=== PATIENT | male | born 1955 ===

== ENCOUNTER 2022-09-16 08:00 | Outpatient (AMB) | payer OTHER, SELFPAY ==
--- NOTE | 2022-09-16 08:06 | A.OFFVIS_ITS ---
Intake Vital Signs 09/16/22 08:10 Height 5 ft 8 in Weight 152 lb BMI 23.1 BP 132/64 Blood Pressure Location Rt brachial Position Sitting Pulse 52 Pulse Oximetry (%) 94 Intake Visit Reasons: ENP-Dementia Intake Note: Patient presents for new patient evaluation Allergies No Known Allergies [No Known Allergies*] Allergy (Unverified 09/16/22 08:11) Medication List - Last Reconciled 09/16/22 by Laurita Aparicio MD aspirin (Adult Aspirin Regimen) 81 mg PO DAILY atorvastatin 20 mg PO DAILY brimonidine 0.1% (Alphagan P) 1 drp ophthalmic (eye) Q8H cholecalciferol (vitamin D3) 25 mcg PO DAILY clonidine HCl 0.2 mg PO DAILY dorzolamide-timolol 22.3-6.8 mg/mL 1 drp ophthalmic-Right TID fluticasone propion-salmeterol 100-50 mcg/dose (Wixela Inhub) 1 inh inhalation BID gabapentin 100 mg PO BID insulin glargine (Lantus U-100 Insulin) 10 units subcut QPM losartan 100 mg PO DAILY netarsudil-latanoprost 0.02-0.005 % (Rocklatan) 1 drp ophthalmic (eye) DAILY nifedipine ER 90 mg PO DAILY sevelamer carbonate 0 mg PO HPI HPI Comments History of Present Illness Details 67y/o male comes for evaluation of change in behavior and cognitive issues. 2 weeks ago during dialysis he threatened to pull his IV out and was very agitated .He threw himself on the floor, was yelling, was not making sense, was aggressive with nurses. He was sent to [facility] - was sedated and discharged . They suggested placement in custodial care but his daughter declined. About 2 years ago his family noticed short term memory issues. he seemed confused with dates , place etc.The cognitive issues gradually progressed. He also did not like socializing. In the past 3 months his cognitive issues and behavior issues worsened significantly.Patient is aggressive, belligerent, refuses treatment. He lives with his . He paces at night and is more confused.No hallucinations. ABout 5 years ago he socially isolated himself, then he left to [place] without informing his family. He spend about a year in [place]. He had 1 bad fall and was looking for illegal drugs, heavy drinking etc. He came back in 2018 without informing his family prior. he called his daughter from the airport- when she met him he was in poor health. He was taken to [facility] . He had trouble with illegal drugs, pain medications, cocaine etc. [facility] Medical History (Updated 09/16/22 @ 09:10 by Laurita Aparicio MD) Anemia Anxiety Behavioral and psychological symptoms of dementia Dementia Depression Diabetes ESRD (end stage renal disease) Glaucoma Hyperlipidemia Surgical History (Updated 09/16/22 @ 08:17 by SASKIA Thomason) Hx of heart artery stent Family History (Updated 09/16/22 @ 08:18 by SASKIA Thomason) Father HTN (hypertension) Mother Diabetes Memory change Sister Diabetes Kidney disease Social History (Updated 09/16/22 @ 08:19 by SASKIA Thomason) Alcohol intake: never Patient Tobacco Use Status: Never used Tobacco Review of Systems Neuro Reports confusion Psych Reports confusion Physical Exam Vital Signs: Last Vital Signs Pulse 52 09/16/22 08:10 BP 132/64 09/16/22 08:10 Pulse Ox 94 09/16/22 08:10 BMI result Body Mass Index 23.1 Const General: no acute distress, confusion and tired appearing Nutritional Appearance: average body habitus Orientation/consciousness: oriented to person and confusion Limitations: physical limitations Neuro Other: patient was no cooperative during exam which limited the MMSE He had left leg weakness likely musculoskeletal right eye- loss of vision, redness Gait with walker - slow General: oriented to person, tone normal and confusion Cranial nerves: Yes Nystagmus not present, Yes Normal facial strength present and Yes Midline tongue present Cognition (Neuro): abnormal cognition Motor exam (neuro): Normal motor muscle tone present throughout Deep tendon reflexes (DTR's): Right triceps reflex intensity grade: 1+, Left triceps reflex intensity grade: 1+, Rt Biceps (C5, C6): 1+, Left biceps reflex intensity grade: 1+, Right brachioradialis reflex intensity grade: 1+, Left brachioradialis reflex intensity grade: 1+, Right patellar reflex intensity grade: 1+ and Left patellar reflex intensity grade: 1+ Psych Appearance: disheveled Speech and movement: Clear speech present Affect: Labile affect present Attitude: Refuses to answer (attititude/behavior) Thought content: Normal thought content present Orientation What is the (year) (season) (date) (day) (month)?: year and season Registration Name of 3 unrelated objects clearly and slowly, then ask patient to repeat all 3 of them. (1st repeat determines score. Make sure they can repeat all three): object 1, object 2 and object 3 Recall Ask patient to repeat the 3 items from question #3.: object 1, object 2 and object 3 Language Show patient a wristwatch & ask what it is. Repeat for pencil.: watch and pencil Ask the patient to 'take a piece of paper with their right hand' 'fold paper in half' 'place paper on floor': take paper in right hand, fold paper in half and place paper on floor Score Score: 13 Assessment & Plan Assessment & Plan (1) Dementia: Comment: multifactorial- vascular . substance use history, ? ETOH , ? mood disorder Code(s): F03.90 - Unspecified dementia, unspecified severity, without behavioral disturbance, psychotic disturbance, mood disturbance, and anxiety (2) Behavioral and psychological symptoms of dementia: Code(s): F03.918 - Unspecified dementia, unspecified severity, with other behavioral disturbance Plan Reports from [facility] for review. I will trial him on namenda XR 7 mg qd and quetiapine 25 mg qhs Urgent psychiatry referral for behavior management Orders: Referrals Psychiatry Referral F03.918 - Unspecified dementia, unspecified severity, with other behavioral disturbance, R41.0 - Disorientation, unspecified Medications: New memantine 7 mg PO DAILY 30 ea 3RF quetiapine 25 mg PO BEDTIME 30 tabs 3RF Coding Level of Care Code New Pt Level 4 (82162) Diagnoses Dementia F03.90 Behavioral and psychological symptoms of dementia F03.918
[2022-09-16 08:10] VITALS: BP 132/64; PULSE 52; O2SAT 94; BMI 23.1
== END 2022-09-16 09:00 | disposition home or self-care (01) ==
LOC: HO.HSMS 08:00
PROVIDERS: PCP Internal Medicine; Visit Provider Psychiatry & Neurology Neurology
DX: F03.90 Unspecified dementia, unspecified severity, without behavioral disturbance, psychotic disturbance, mood disturbance, and anxiety (principal); F03.918 Unspecified dementia, unspecified severity, with other behavioral disturbance
CPT/HCPCS: 99204

== ENCOUNTER → 2022-09-16 08:00 | Outpatient (BNVA) | payer OTHER, SELFPAY | PROVIDERS: PCP Internal Medicine; Visit Provider Psychiatry & Neurology Neurology | DX: F03.918 Unspecified dementia, unspecified severity, with other behavioral disturbance (principal) | CPT/HCPCS: 99202 ==

== ENCOUNTER 2022-10-28 08:21 | Outpatient (AMB) | payer OTHER, SELFPAY ==
--- NOTE | 2022-10-28 08:27 | A.OFFVIS_ITS ---
Intake Vital Signs 10/28/22 08:31 Height 5 ft 8 in Weight 156 lb 8 oz BMI 23.8 BP 140/78 H Blood Pressure Location Lt brachial Position Sitting Respiration 16 Pulse 83 Pulse Source Pulse Oximeter Pulse Oximetry (%) 94 Oxygen Delivery Method Room Air Intake Visit Reasons: 6wk f/u Dementia-confirmed Intake Note: pt states he feels good today Allergies No Known Allergies [No Known Allergies*] Allergy (Verified 10/28/22 08:30) HPI HPI Comments History of Present Illness Details 67y/o male comes for evaluation of change in behavior and cognitive issues.He was started on quetiapine 25 mg qhs - did not help with his behavior but no side effects Memantine did not help either.His confusion is worse during dialysis and is worse on days he is getting dialysis . 2 weeks ago during dialysis he threatened to pull his IV out and was very agitated .He threw himself on the floor, was yelling, was not making sense, was aggressive with nurses. He was sent to [facility] - was sedated and discharged . They suggested placement in nursing home care but his daughter declined. About 2 years ago his family noticed short term memory issues. he seemed con fused with dates , place etc.The cognitive issues gradually progressed. He also did not like socializing. In the past 3 months his cognitive issues and behavior issues worsened significantly.Patient is aggressive, belligerent, refuses treatment. He lives with his . He paces at night and is more confused.No hallucinations. ABout 5 years ago he socially isolated himself, then he left to [place] without informing his family. He spend about a year in [place]. He had 1 bad fall and was looking for illegal drugs, heavy drinking etc. He came back in 2018 without informing his family prior. he called his daughter from the airport- when she met him he was in poor health. He was taken to [facility] . He had trouble with illegal drugs, pain medications, cocaine etc. [facility] Medical History (Updated 10/28/22 @ 08:52 by Laurita Aparicio MD) Anemia Anxiety Behavioral and psychological symptoms of dementia Delirium due to another medical condition Dementia Depression Diabetes ESRD (end stage renal disease) Glaucoma Hyperlipidemia Surgical History (Updated 09/16/22 @ 08:17 by SASKIA Thomason) Hx of heart artery stent Family History (Updated 09/16/22 @ 08:18 by SASKIA Thomason) Father HTN (hypertension) Mother Diabetes Memory change Sister Diabetes Kidney disease Social History (Updated 09/16/22 @ 08:19 by SASKIA Thomason) Alcohol intake: never Patient Tobacco Use Status: Never used Tobacco Review of Systems Neuro Reports confusion Psych Reports confusion Physical Exam Vital Signs: Last Vital Signs Pulse 83 10/28/22 08:31 Resp 16 10/28/22 08:31 BP 140/78 H 10/28/22 08:31 Pulse Ox 94 10/28/22 08:31 Oxygen Delivery Method Room Air 10/28/22 08:31 BMI result Body Mass Index 23.8 Const General: no acute distress, confusion and tired appearing Nutritional Appearance: average body habitus Orientation/consciousness: oriented to person and confusion Limitations: physical limitations Neuro Other: patient was no cooperative during exam which limited the MMSE He had left leg weakness likely musculoskeletal right eye- loss of vision, redness Gait with walker - slow General: oriented to person, tone normal and confusion Cranial nerves: Yes Nystagmus not present, Yes Normal facial strength present and Yes Midline tongue present Cognition (Neuro): abnormal cognition Motor exam (neuro): Normal motor muscle tone present throughout Psych Appearance: disheveled Speech and movement: Clear speech present Affect: Labile affect present Attitude: Refuses to answer (attititude/behavior) Thought content: Normal thought content present Assessment & Plan Assessment & Plan (1) Dementia: Comment: multifactorial- vascular . substance use history, ? ETOH , ? mood disorder Code(s): F03.90 - Unspecified dementia, unspecified severity, without behavioral disturbance, psychotic disturbance, mood disturbance, and anxiety (2) Behavioral and psychological symptoms of dementia: Code(s): F03.918 - Unspecified dementia, unspecified severity, with other behavioral disturbance (3) Delirium due to another medical condition: Comment: dialysis induced Code(s): F05 - Delirium due to known physiological condition Plan Increase namenda XR 14 mg qd and stop quetiapine 25 mg qhs I will trial him on haldol 0.25 mg tid and also PRN lorazepam Urgent psychiatry referral for behavior management Medications: New lorazepam 0.5 mg PO TID PRN 90 tabs 0RF anxiety haloperidol 0.25 mg (1/2 x 0.5 mg) PO BID 45 tabs 1RF Discontinued quetiapine Discontinued Reason: Doctor's Order 25 mg PO BEDTIME 30 tabs 3RF Coding Level of Care Code Est Pt Level 4 (70293) Diagnoses Dementia F03.90 Behavioral and psychological symptoms of dementia F03.918 Delirium due to another medical condition F05
[2022-10-28 08:31] VITALS: BP 140/78; PULSE 83; RESP 16; O2SAT 94; BMI 23.8
== END 2022-10-28 09:00 | disposition home or self-care (01) ==
PROVIDERS: PCP Internal Medicine; Visit Provider Psychiatry & Neurology Neurology
DX: F03.90 Unspecified dementia, unspecified severity, without behavioral disturbance, psychotic disturbance, mood disturbance, and anxiety (principal); F03.918 Unspecified dementia, unspecified severity, with other behavioral disturbance; F05 Delirium due to known physiological condition
CPT/HCPCS: 99214

== ENCOUNTER → 2022-10-28 08:21 | Outpatient (BNVA) | payer OTHER, SELFPAY | PROVIDERS: PCP Internal Medicine; Visit Provider Psychiatry & Neurology Neurology | DX: F03.918 Unspecified dementia, unspecified severity, with other behavioral disturbance (principal); F05 Delirium due to known physiological condition | CPT/HCPCS: 99212 ==

== ENCOUNTER 2023-09-30 07:33 | Outpatient (AMB) | payer OTHER, SELFPAY ==
--- NOTE | 2023-09-30 07:33 | A.OFFVIS_ITS ---
Vital Signs 09/30/23 07:34 Height 5 ft 8 in BP 98/54 L Blood Pressure Location Rt brachial Position Sitting Respiration 16 Pulse 61 Pulse Source Pulse Oximeter Pulse Oximetry (%) 97 Oxygen Delivery Method Room Air Intake Visit Reasons: Follow Up - Confirmed Intake Note: Pt presents to the office for a one year follow up for dementia. [place] [employer] Loom Required: No Allergies ampicillin Allergy (Intermediate, Verified 09/30/23 07:41) vomiting nicardipine Allergy (Mild, Verified 09/30/23 07:41) Altered Sense of Taste Medication List - Last Reconciled 09/30/23 by Laurita Aparicio MD amlodipine 10 mg PO DAILY aspirin (Adult Aspirin Regimen) 81 mg PO DAILY atorvastatin 20 mg PO DAILY atropine 0.1 mg PO Q6H brimonidine 0.1% (Alphagan P) 1 drp ophthalmic (eye) Q8H cholecalciferol (vitamin D3) 25 mcg PO DAILY clonidine HCl 0.2 mg PO DAILY dorzolamide-timolol 22.3-6.8 mg/mL 1 drp ophthalmic-Right TID fluticasone propion-salmeterol 100-50 mcg/dose (Wixela Inhub) 1 inh inhalation BID gabapentin 100 mg PO BID haloperidol 1 mg PO ONCE PRN 30 days hydralazine 100 mg PO BID insulin glargine (Lantus U-100 Insulin) 10 units subcut QPM losartan 100 mg PO DAILY netarsudil-latanoprost 0.02-0.005 % (Rocklatan) 1 drp ophthalmic (eye) DAILY sevelamer carbonate 0 mg PO trazodone 25 mg PO DAILY HPI Comments Details: 68y/o male comes for follow up of behavior and cognitive issues during dialysis.His last viist was 1 year ago when he was rec to see a psychiatrist. In Dec 2022 he had hip replacement and was hospitalized for possible seizure. After his discharge he was walking normally .4 week later he had a CVA - he was hospitalized at [facility] for possible meningitis . He had leg ? infections , vascular issues - had maria de jesus above knee amputations. He lives at home and his daughter is his INTERNAL [employer]IC[employer] VETERIN[employer] TECHNICIAN she is here for help with sundowning and agitation during dialysis. His underwriting assistant suggested haloperidol 1mg prior to dialysis. he also started him on trazadone 25 mg qhs for sleep. His confusion is worse during dialysis and is worse on days he is getting dialysis . Prior history-2 weeks ago during dialysis he threatened to pull his IV out and was very agitated .He threw himself on the floor, was yelling, was not making sense, was aggressive with nurses. He was sent to [facility] - was sedated and discharged . They suggested placement in exterminator care but his daughter declined. About 2 years ago his family noticed short term memory issues. he seemed confused with dates , place etc.The cognitive issues gradually progressed. He also did not like socializing. In the past 3 months his cognitive issues and beh avior issues worsened significantly.Patient is aggressive, belligerent, refuses treatment. He lives with his . He paces at night and is more confused.No hallucinations. ABout 5 years ago he socially isolated himself, then he left to [place] without informing his family. He spend about a year in [place]. He had 1 bad fall and was looking for illegal drugs, heavy drinking etc. He came back in 2018 without informing his family prior. he called his daughter from the airport- when she met him he was in poor health. He was taken to [facility] . He had trouble with illegal drugs, pain medications, cocaine etc. 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 Delirium due to another medical condition Dementia Behavioral and psychological symptoms of dementia Anxiety Depression Hyperlipidemia Glaucoma Anemia ESRD (end stage renal disease) Diabetes Surgical History H/O lower limb amputation Hx of heart artery stent Family History Father HTN (hypertension) Mother Diabetes Memory change Sister Diabetes Kidney disease Social History Alcohol intake: never Patient Tobacco Use Status: Never used Tobacco Review of Systems Neuro Reports confusion Psych Reports confusion Physical Exam Vital Signs: Last Vital Signs Pulse 61 09/30/23 07:34 Resp 16 09/30/23 07:34 BP 98/54 L 09/30/23 07:34 Pulse Ox 97 09/30/23 07:34 Oxygen Delivery Method Room Air 09/30/23 07:34 Const General: no acute distress, confusion and tired appearing Nutritional Appearance: average body habitus Orientation/consciousness: confusion Limitations: physical limitations Neuro Other: in stretcher, very tired, makes eye contact , responds to daughter General: tone normal and confusion Cranial nerves: Yes Normal facial strength present Cognition (Neuro): abnormal cognition Psych Appearance: disheveled Speech and movement: Clear speech present Affect: Labile affect present Attitude: Refuses to answer (attititude/behavior) Thought content: Normal thought content present Assessment & Plan Assessment & Plan (1) Dementia: Comment: multifactorial- vascular . substance use history, ? ETOH , ? mood disorder Code(s): F03.90 - Unspecified dementia, unspecified severity, without behavioral disturbance, psychotic disturbance, mood disturbance, and anxiety Category: Medical (2) Behavioral and psychological symptoms of dementia: Code(s): F03.918 - Unspecified dementia, unspecified severity, with other behavioral disturbance Category: Medical (3) Delirium due to another medical condition: Comment: dialysis induced Code(s): F05 - Delirium due to known physiological condition Category: Medical Plan Add lorazepam 0.5mg 1 hr prior to dialysis and 1 tab during dialysis Add quetiapine 25 mg 1/2 tab at 4 pm and 1/2 tab at 8 pm for sundowning Increase trazadone 50mg qhs Medications: New quetiapine 25 mg orally 1/2 tab at 4 pm and 1/2 tab at 8 pm; 1/2 tab at 4 pm and 1/2 tab at 8pm 30 tabs 6RF lorazepam 0.5 mg orally 1 hr prior to dialysis and 1 tab during dialysis 60 tabs 5RF anxiety Changed From haloperidol 0.5 mg PO BID 30 days 60 tabs 1RF To haloperidol 1 mg PO ONCE 30 days PRN 30 tabs 1RF on dialysis days Discontinued memantine Discontinued Reason: Patient no longer taking 7 mg PO DAILY 30 ea 3RF lorazepam Discontinued Reason: Patient no longer taking 0.5 mg PO TID PRN 90 tabs 0RF anxiety Coding Level of Care Code Est Pt Level 4 (74696) Complex EM visit Add On G2211 Diagnoses Dementia F03.90 Behavioral and psychological symptoms of dementia F03.918 Delirium due to another medical condition F05
[2023-09-30 07:34] VITALS: BP 98/54; PULSE 61; RESP 16; O2SAT 97
== END 2023-09-30 08:11 | disposition home or self-care (01) ==
PROVIDERS: PCP Internal Medicine; Visit Provider Psychiatry & Neurology Neurology
DX: F03.90 Unspecified dementia, unspecified severity, without behavioral disturbance, psychotic disturbance, mood disturbance, and anxiety (principal); F03.918 Unspecified dementia, unspecified severity, with other behavioral disturbance; F05 Delirium due to known physiological condition
CPT/HCPCS: 99214; G2211

== ENCOUNTER → 2023-09-30 07:33 | Outpatient (BNVA) | payer OTHER, SELFPAY | PROVIDERS: PCP Internal Medicine; Visit Provider Psychiatry & Neurology Neurology | DX: F03.90 Unspecified dementia, unspecified severity, without behavioral disturbance, psychotic disturbance, mood disturbance, and anxiety (principal); F03.918 Unspecified dementia, unspecified severity, with other behavioral disturbance; F05 Delirium due to known physiological condition | CPT/HCPCS: 99212 ==